=== PATIENT | female | born 1980 | race Caucasian/White ===

== ENCOUNTER → 2016-11-22 | Outpatient (CLI) | payer OTHER ==
--- NOTE | 2016-11-23 10:35 | MAM ---
EXAM DESCRIPTION: 3D Screening BILATERAL CLINICAL HISTORY: 36 yearsFemaleSCREENING no complaints. No family history of breast cancer. Postmenopausal. No HRT. COMPARISON: Baseline study at this facility. No prior reports available. TECHNIQUE: Bilateral CC and MLO projection full-field images, 3-D tomosynthesis digital mammographic technique. Also bilateral synthesized CC/ MLO full-field images. CAD not utilized. FINDINGS: The breast parenchymal density pattern is: Extremely dense breast tissue, which lowers the sensitivity of mammography. No skin thickening or nipple retraction bilateral coarse solitary calcifications. Focal asymmetry in the posterior third of the upper inner quadrant of the left breast at the 1030 clock position. Slightly more dense than the surrounding dense fibroglandular tissues. 3.2 cm from the lateral skin and 7.5 cm from the nipple. No microcalcifications. No focal, stellate mass or density, , and no suspicious microcalcifications bilaterally. No focal asymmetry in the right breast. IMPRESSION: BI-RADS CATEGORY: 0 - INCOMPLETE- Need additional imaging evaluation. FOLLOW-UP: Recall for additional imaging: Targeted ultrasound of the region of interest in the posterior third of the upper inner quadrant of the left breast as described in the findings.. Written communication concerning the IMPRESSION and Follow-up, will be mailed to the patient and referring health care provider. Electronically signed by: Madhu Ortega MD 11/23/2016 10:34 AM CDT
== END | disposition home or self-care (01) ==
LOC: MAMMO 13:20
PROVIDERS: ATTEND Family Medicine
DX: Z12.31 Encounter for screening mammogram for malignant neoplasm of breast (principal)
CPT/HCPCS: 77063; G0202

== ENCOUNTER → 2017-01-18 | Outpatient (CLI) | payer OTHER ==
--- NOTE | 2017-01-19 08:28 | US ---
EXAM DESCRIPTION: Breast,Left: Ultrasound CLINICAL HISTORY: 36 yearsFemaleABNORMAL MAMMO COMPARISON: Digital screening 3-D tomosynthesis bilateral breast 11/22/2016. Reviewed previous report. TECHNIQUE: Transcutaneous scanning of the upper inner quadrant of the posterior third of the left breast utilizing two-dimensional and Doppler modes. Scanning performed by the assistant strength coach and Dr. Ortega. FINDINGS: Scanned 1000 clock position of the left breast 7 cm from the nipple, near the chest wall. Heterogeneous fibroglandular and fatty tissues. No discrete solid mass or cyst. No parenchymal edema or large calcifications. No skin thickening. IMPRESSION: BI-RADS CATEGORY: 2 - BENIGN FINDINGS. FOLLOW UP: (Routine digital bilateral screening, at age 41. The FINDINGS and the follow-up plan were reviewed in person with the patient after the examination. Written communication explaining the IMPRESSION and follow-up will be mailed to the patient and referring care provider. According to the [employer], yearly mammograms are recommended starting at age 40 and continuing as long as a woman is in good health. Any breast change noted on a breast self-exam should be reported promptly to the patient's healthcare provider. Breast MRI is recommended for women with an approximately 20-25% or greater lifetime risk of breast cancer, including women with a strong family history of breast or ovarian cancer and women who have been treated for Hodgkin's disease. A negative mammographic report should not delay tissue diagnosis in patients with significant clinical history or physical findings. Extremely dense breast tissue limits the sensitivity of digital mammography. Electronically signed by: Madhu Ortega MD 01/19/2017 8:26 AM NAIL TECHNICIAN
== END | disposition home or self-care (01) ==
LOC: MAMMO 15:10
PROVIDERS: ATTEND Family Medicine
DX: R92.8 Other abnormal and inconclusive findings on diagnostic imaging of breast (principal)